=== PATIENT | male | born 1970 | race Two or more races ===

== ENCOUNTER → 2024-05-21 | Day surgery (SDC) | payer MEDICAID ==
[~2024-05-21] VITALS: Ht 172.7 cm; Wt 63.5 kg
[~2024-05-21] MED LIST: BACITRACIN 14GM TUBE TOP ONE; BUPIVACAINE HCL/PF 0.5% (5MG/ML) 10ML ONE; CLINDAMYCIN 900MG PREMIX 50 ML IV ONE; DEXAMETHASONE 4MG/ML 1ML VIAL ONE; EMTR1TAB12 PO; FENTANYL CITRATE/PF 50MCG/ML 2ML VIAL ONE; LABETALOL 5MG/ML 4ML INJ IV PRN; LIDOCAINE HCL/EPINEPHRINE 1%-EPI 1:100,000 20ML VIAL ONE; MEPERIDINE HCL/PF 25MG/ML CPJ IV PRN; MIDAZOLAM HCL 2 MG/2 ML VIAL ONE; ONDANSETRON HCL 4MG/2ML INJ IV PRN; ONDANSETRON HCL 4MG/2ML INJ ONE; PROPOFOL 200MG/20ML VIAL IV ONE; TEMA15CA PO
[2024-05-21] MEDS: LACTATED RINGERS 1,000 ML IV SCH (07:53)
[2024-05-21] MEDS: ACETAMINOPHEN WITH CODEINE 300/30MG TABLET PO NR (12:46)
[2024-05-21 13:28] VITALS: BP 135/90; PULSE 80; RESP 17
[2024-05-21] MEDS: HYDROMORPHONE HCL/PF 1MG/ML INJ IV PRN (13:28)
== END | disposition home or self-care (01) ==
LOC: OR 07:18
PROVIDERS: ATTEND Surgery
DX: K62.89 Other specified diseases of anus and rectum (principal); K62.1 Rectal polyp; E78.5 Hyperlipidemia, unspecified; F32.A Depression, unspecified; F41.9 Anxiety disorder, unspecified; Z79.899 Other long term (current) drug therapy; Z98.890 Other specified postprocedural states
CPT/HCPCS: 45171; 88304; J3010; J0665; J3490; J1100; J2004; J2250; J2405; J2704; J1171